=== PATIENT | female | born 1975 | race Caucasian/White ===

== ENCOUNTER 2024-04-07 09:19 | Emergency (ER) | payer BC ==
[~2024-04-07] VITALS: Ht 152.4 cm; Wt 87.8 kg
[2024-04-07 09:23] VITALS: BP 149/95; PULSE 105; TEMP 98; O2SAT 100
[2024-04-07 09:47] VITALS: RESP 22
[2024-04-07] MEDS ORDERED: BENZ-38 PO (10:16)
[2024-04-07] MEDS ORDERED: ALBU8HFA INH (10:16)
== END 2024-04-07 10:30 | disposition home or self-care (01) ==
LOC: ER 09:20
DX: J06.9 Acute upper respiratory infection, unspecified (principal); Z88.5 Allergy status to narcotic agent
CPT/HCPCS: 71045; 99283